=== PATIENT | female | born 1970 | race Caucasian/White ===

== ENCOUNTER 2018-12-21 10:28 | Emergency (ER) | payer OTHER, SELFPAY ==
--- NOTE | 2018-12-21 13:44 | RAD REPORT ---
EXAM DESCRIPTION: US - Upper Ext Artery Uni Sunny - 12/21/2018 1:15 pm CLINICAL HISTORY: coloration changes;Pain Left arm pain COMPARISON: No comparisons FINDINGS: Doppler interrogation of the left upper extremity arterial system was performed. No signif icant flow abnormality detected. No stenosis or occlusion seen. IMPRESSION: Unremarkable study.
--- NOTE | 2018-12-21 13:45 | RAD REPORT ---
EXAM DESCRIPTION: US - UPPER EXTREMITY VENOUS UNILATE - 12/21/2018 1:15 pm CLINICAL HISTORY: PAIN AND COLORATION CHANGE Arm pain and discoloration COMPARISON: No comparisons FINDINGS: Left upper extremity venous system was interrogated with Doppler technique. Normal flow, c ompressibility and augmentation was noted. There is no DVT present. IMPRESSION: No evidence of left upper extremity deep venous thrombosis.
--- NOTE | 2018-12-21 14:30 | RAD REPORT ---
EXAM DESCRIPTION: RAD - Shoulder Left 2 View - 12/21/2018 2:23 pm CLINICAL HISTORY: decreased range of motion;Pain Pain and swelling COMPARISON: No comparisons FINDINGS: Bony thickening/ remodeling is seen proximal shaft of the left humerus favored to be relat ed to prior trauma. No acute fracture or dislocation seen.
--- NOTE | 2018-12-21 14:30 | ER ---
Nurse's Notes [facility] Name: Pili Izaguirre Age: 48 yrs Sex: Female : 1970 Arrival Date: 12/21/2018 Time: 10:31 Bed 9 Private MD: Diagnosis: Adhesive capsulitis of left shoulder Presentation: 12/21 10:47 Presenting complaint: Patient states: pulled a muscle in left arm a while back, now has iw decreased ROM, coloring in pinky and ring finger seems discolored. Transition of care: patient was not received from another setting of care. Onset of symptoms was November 2018. Risk Assessment: Do you want to hurt yourself or someone else? Patient reports no desire to harm self or others. Initial Sepsis Screen: Does the patient meet any 2 criteria? No. Patient's initial sepsis screen is negative. Does the patient have a suspected source of infection? No. Patient's initial sepsis screen is negative. Care prior to arrival: None. 10:47 Method Of Arrival: Ambulatory iw 10:47 Acuity: BENOIT 4 iw Triage Assessment: 14:00 General: Behavior is calm, cooperative. 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 - Social history:: Smoking status: Patient uses tobacco products, smokes one-half pack cigarettes per day, smokes one pack cigarettes per day. - Ebola Screening: : Patient negative for fever greater than or equal to 101.5 degrees Fahrenheit, and additional compatible Ebola Virus Disease symptoms Patient denies exposure to infectious person Patient denies travel to an Ebola-affected area in the 21 days before illness onset No symptoms or risks identified at this time. Screenin:22 Abuse screen: Denies threats or abuse. Denies injuries from another. Nutritional iw screening: No deficits noted. Tuberculosis screening: No symptoms or risk factors identified. Fall Risk None identified. Assessment: 10:47 General: Appears in no apparent distress. Pain: Complains of pain in left arm. Neuro: iw Level of Consciousness is awake, alert, obeys commands. Cardiovascular: Patient's skin is warm and dry. Respiratory: Airway is patent. Derm: Skin is intact, is healthy with good turgor. Musculoskeletal: Range of motion: limited in left shoulder and left elbow. 14:35 Reassessment: Patient appears in no apparent distress at this time. Patient and/or ss family updated on plan of care and expected duration. Pain level reassessed. Vital Signs: 10:49 BP 125 / 73; Pulse 96; Resp 16; Temp 97.7(TE); Pulse Ox 100% ; Weight 79.38 kg; Height iw 5 ft. 7 in. (170.18 cm); Pain 8/10; 10:49 Body Mass Index 27.41 (79.38 kg, 170.18 cm) iw ED Course: 10:31 Patient arrived in ED. as 10:32 Kourtney Willis FNP-C is PHCP. snw 10:32 Iam Blankenship MD is Attending Physician. snw 10:48 Triage completed. iw 10:49 Arm band placed on. iw 11:00 Patient has correct armband on for positive identification. iw 12:21 Leelee Leon, RN is Primary Nurse. iw 13:16 Upper Ext Artery Uni Sunny In Process Unspecified. EDMS 13:16 UPPER EXTREMITY VENOUS UNILATE In Process Unspecified. EDMS 14:24 Shoulder Left (2 View) XRAY In Process Unspecified. EDMS 14:29 Gonsalo Landis MD is Referral Physician. snw 14:35 No provider procedures requiring assistance completed. Patient did not have IV access ss during this emergency room visit. Administered Medications: No medications were administered Outcome: 14:29 Discharge ordered by . snw 14:35 Discharged to home ambulatory. ss 14:35 Condition: good 14:35 Discharge instructions given to patient, Instructed on discharge instructions, follow up and referral plans. medication usage, Demonstrated understanding of instructions, follow-up care, medications, Prescriptions given X 2. 14:35 Patient left the ED. ss Signatures: Dispatcher [employer] EDMS Kourtney Willis FNP-C OUTDOOR ADVERTISING LEASING AGENT-Csnw Allison Rose as Leelee Leon, RN ANNALISA iw Sindy Hameed RN RN ss
--- NOTE | 2018-12-21 14:30 | EDPHYS ---
Physician Documentation [facility] Name: Pili Izaguirre Age: 48 yrs Sex: Female : 1970 Arrival Date: 12/21/2018 Time: 10:31 Bed 9 Private MD: ED Physician Iam Blankenship HPI: 12/21 14:36 This 48 yrs old Female presents to ER via Ambulatory with complaints of Arm snw Pain, Shoulder Pain. 14:36 The patient or guardian complains of decreased range of motion, pain, that is chronic. snw left shoulder. Context: The problem was sustained at an unknown site, resulted from an unknown reason, The patient experiences decreased range of motion, The patient reports no obvious deformity. Onset: The symptoms/episode began/occurred gradually, 2 month(s) ago, and became worse and became persistent. Associated signs and symptoms: Pertinent positives: of the 4th and 5th fingertips appeared discolored compared to her other hand and it made patient nervous. Severity of symptoms: At their worst the symptoms were mild, moderate. The patient has not experienced similar symptoms in the past. The patient has not recently seen a physician. 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 - Social history:: Smoking status: Patient uses tobacco products, smokes one-half pack cigarettes per day, smokes one pack cigarettes per day. - Ebola Screening: : Patient negative for fever greater than or equal to 101.5 degrees Fahrenheit, and additional compatible Ebola Virus Disease symptoms Patient denies exposure to infectious person Patient denies travel to an Ebola-affected area in the 21 days before illness onset No symptoms or risks identified at this time. ROS: 14:34 Constitutional: Negative for fever, chills, and weight loss, Eyes: Negative for injury, snw pain, redness, and discharge, ENT: Negative for injury, pain, and discharge, Neck: Negative for injury, pain, and swelling, Cardiovascular: Negative for chest pain, palpitations, and edema, Respiratory: Negative for shortness of breath, cough, wheezing, and pleuritic chest pain, Abdomen/GI: Negative for abdominal pain, nausea, vomiting, diarrhea, and constipation, Back: Negative for injury and pain, Skin: Negative for injury, rash, and discoloration, Neuro: Negative for headache, weakness, numbness, tingling, and seizure. 14:34 MS/extremity: Positive for decreased range of motion, pain, of the left shoulder, pt states she pulled something in her tricep area and has kept her shoulder still as it shoots pain down her arm when she moves it. Noted red discoloration to 4th and 5th fingertips today. Exam: 14:06 Constitutional: This is a well developed, well nourished patient who is awake, alert, snw and in no acute distress. Head/Face: Normocephalic, atraumatic. Eyes: Pupils equal round and reactive to light, extra-ocular motions intact. Lids and lashes normal. Conjunctiva and sclera are non-icteric and not injected. Cornea within normal limits. Periorbital areas with no swelling, redness, or edema. ENT: Nares patent. No nasal discharge, no septal abnormalities noted. Tympanic membranes are normal and external auditory canals are clear. Oropharynx with no redness, swelling, or masses, exudates, or evidence of obstruction, uvula midline. Mucous membranes moist. Neck: Trachea midline, no thyromegaly or masses palpated, and no cervical lymphadenopathy. Supple, full range of motion without nuchal rigidity, or vertebral point tenderness. No Meningismus. Chest/axilla: Normal chest wall appearance and motion. Nontender with no deformity. No lesions are appreciated. Cardiovascular: Regular rate and rhythm with a normal S1 and S2. No gallops, murmurs, or rubs. Normal PMI, no JVD. No pulse deficits. Respiratory: Lungs have equal breath sounds bilaterally, clear to auscultation and percussion. No rales, rhonchi or wheezes noted. No increased work of breathing, no retractions or nasal flaring. Abdomen/GI: Soft, non-tender, with normal bowel sounds. No distension or tympany. No guarding or rebound. No evidence of tenderness throughout. Back: No spinal tenderness. No costovertebral tenderness. Full range of motion. Skin: Warm, dry with normal turgor. Normal color with no rashes, no lesions, and no evidence of cellulitis. Neuro: Awake and alert, GCS 15, oriented to person, place, time, and situation. Cranial nerves II-XII grossly intact. Motor strength 5/5 in all extremities. Sensory grossly intact. Cerebellar exam normal. Normal gait. Psych: Awake, alert, with orientation to person, place and time. Behavior, mood, and affect are within normal limits. 14:06 Musculoskeletal/extremity: Extremities: grossly normal except: noted in the left shoulder: decreased ROM, swelling, tenderness, to posterior tricep area of left arm, ROM: unable to abduct left arm, full ROM to left elbow, Pulses: are normal with no appreciated deficits, erythematous discoloration to left 4th and 5th dorsal fingertips. Sensation intact. Vital Signs: 10:49 BP 125 / 73; Pulse 96; Resp 16; Temp 97.7(TE); Pulse Ox 100% ; Weight 79.38 kg; Height iw 5 ft. 7 in. (170.18 cm); Pain 8/10; 10:49 Body Mass Index 27.41 (79.38 kg, 170.18 cm) iw MDM: 12:27 Patient medically screened. snw 14:34 Data reviewed: vital signs, nurses notes. Data interpreted: Pulse oximetry: on room air snw is 100 %. Interpretation: normal. Counseling: I had a detailed discussion with the patient and/or guardian regarding: the historical points, exam findings, and any diagnostic results supporting the discharge/admit diagnosis, radiology results, the need for outpatient follow up, to return to the emergency department if symptoms worsen or persist or if there are any questions or concerns that arise at home. Special discussion: Based on the history and exam findings, there is no indication for further emergent testing or inpatient evaluation. I discussed with the patient/guardian the need to see the orthopedic surgeon for further evaluation of the symptoms. 12/21 12:51 Order name: Upper Ext Artery Uni Sunny; Complete Time: 13:58 EDMS 12/21 12:55 Order name: UPPER EXTREMITY VENOUS UNILATE; Complete Time: 13:58 EDMS 12/21 13:25 Order name: Shoulder Left (2 View) XRAY; Complete Time: 14:38 snw Administered Medications: No medications were administered Disposition: 18:50 Co-signature as Attending Physician, Iam Blankenship MD. ma2 Disposition: 12/21/18 14:29 Discharged to Home. Impression: Adhesive capsulitis of left shoulder. - Condition is Stable. - Discharge Instructions: Shoulder Range of Motion Exercises, Adhesive Capsulitis. - Prescriptions for Mobic 7.5 mg Oral Tablet - take 1 tablet by ORAL route once daily take with food; 20 tablet. orphenadrine citrate 100 mg Oral Tablet Sustained Release - take 1 tablet by ORAL route 2 times per day As needed; 20 tablet. - Medication Reconciliation Form, Thank You Letter, Antibiotic Education, Prescription Opioid Use form. - Follow up: Private Physician; When: 1 - 2 days; Reason: Recheck today's complaints, Continuance of care. Follow up: Gonsalo Landis; When: 2 - 3 days; Reason: Recheck today's complaints, Continuance of care. Signatures: Dispatcher [employer] EDUT Kourtney Willis, WAFER POLISHING LEAD WORKER-C WAFER POLISHING LEAD WORKER-Csnw Leelee Leon RN RN Sindy Hameed RN RN ss Alzahri, Mohammad, MD MD ma2 Corrections: (The following items were deleted from the chart) 12:51 11:06 Extremity Venous Uni Ltd+[email or web address] ordered. EDMS EDMS 12:51 11:06 Lower Extremity Artery Uni Ltd+[email or web address].[email or web address] ordered. EDUT EDMS 14:35 14:29 12/21/2018 14:29 Discharged to Home. Impression: Adhesive capsulitis of left ss shoulder. Condition is Stable. Discharge Instructions: Adhesive Capsulitis, Shoulder Range of Motion Exercises. Prescriptions for Mobic 7.5 mg Oral Tablet - take 1 tablet by ORAL route once daily take with food; 20 tablet, orphenadrine citrate 100 mg Oral Tablet Sustained Release - take 1 tablet by ORAL route 2 times per day As needed; 20 tablet. and Forms are Medication Reconciliation Form, Thank You Letter, Antibiotic Education, Prescription Opioid Use. Follow up: Private Physician; When: 1 - 2 days; Reason: Recheck today's complaints, Continuance of care. Follow up: Gonsalo Landis; When: 2 - 3 days; Reason: Recheck today's complaints, Continuance of care. snw
[2018-12-21 14:51] VITALS: BP 125/73; TEMP 97.7; O2SAT 100
== END 2018-12-21 14:35 | disposition home or self-care (01) ==
LOC: ER 10:28
DX: M75.02 Adhesive capsulitis of left shoulder (principal); F17.210 Nicotine dependence, cigarettes, uncomplicated; Z88.0 Allergy status to penicillin
CPT/HCPCS: 93931; 93971; 99283